=== PATIENT | female | born 1970 ===

== ENCOUNTER → 2019-06-13 | Emergency (ER) | payer OTHER ==
[~2019-06-13] VITALS: Ht 170.2 cm; Wt 68.0 kg
[~2019-06-13] MED LIST: LEVSIN0.125 MG; LOTRONEX1 MG; MILLIPRED5 MG PO; NASAL MIST126 ML NASAL; SYMAX DUOTAB0.375 MG; WELCHOL625 MG; XOPENEX0.63 MG/3 IH
== END | disposition home or self-care (01) ==
LOC: ER 13:11
DX: J45.998 Other asthma (principal); R06.03 Acute respiratory distress; B96.0 Mycoplasma pneumoniae [M. pneumoniae] as the cause of diseases classified elsewhere